=== PATIENT | female | born 1970 | race Two or more races ===

== ENCOUNTER 2022-08-05 00:22 | Inpatient (IN) | payer OTHER ==
[~2022-08-05] VITALS: Ht 165.1 cm; Wt 74.8 kg
--- NOTE | 2022-08-05 00:28 | NUR ---
Dr. Armstrong at bedside. MSE in progress.
[2022-08-05] MEDS ORDERED: ONDANSETRON 4 MG/2 ML VIAL IV ONE (00:45)
[2022-08-05] MEDS ORDERED: IV NORMAL SALINE 1000 ML BAG IV ONE (00:45)
[2022-08-05] MEDS ORDERED: HYDROMORPHONE 1 MG/1 ML DISP.SYRIN IV ONE (00:45)
[2022-08-05] MEDS ORDERED: ONDANSETRON 4 MG/2 ML VIAL ONE (00:52)
[2022-08-05] MEDS ORDERED: HYDROMORPHONE 1 MG/1 ML DISP.SYRIN ONE (00:52)
[2022-08-05 01:31] LABS: HEMATOCRIT 39.4 % (31.2-41.9); PLATELET COUNT (AUTO) 243 K/uL (179-408)
[2022-08-05 01:35] LABS: *BILIRUBIN,URIN NEGATIVE (NEGATIVE); *BLOOD, URINE NEGATIVE (NEGATIVE); *CLARITY,URINE CLEAR (CLEAR); *COLOR,URINE YELLOW (YELLOW); *KETONES,URINE NEGATIVE (NEGATIVE); *UROBILINOGEN,URINE 0.2 E.U./dl (NORMAL); LEUKOCYTE ESTERASE ,URINE NEGATIVE (NEGATIVE); NITRITE, URINE NEGATIVE (NEGATIVE); PH,URINE 8.5 (5.0-8.0); UGLUCOSE NEGATIVE (NEGATIVE)
[2022-08-05 01:42] LABS: ALANINE AMINOTRANSFERASE 13 U/L (14-59); ALKALINE PHOSPHATASE 100 U/L (50-136); ASPARTATE AMINOTRANSFERASE 13 U/L (15-37); BILIRUBIN,DIRECT < 0.1 mg/dL (0.0-0.2); BILIRUBIN,TOTAL 0.5 mg/dL (0.2-1.0); CARBON DIOXIDE 29 mmol/L (21-32); CHLORIDE 105 mmol/L (98-107); CREATININE 0.6 mg/dL (0.6-1.3); GLUCOSE 135 mg/dL (74-106); LIPASE 87 U/L (73-393); POTASSIUM 4.2 mmol/L (3.5-5.1); TOTAL PROTEIN, SERUM 7.3 g/dL (6.4-8.2); UREA NITROGEN, BLOOD 12 mg/dL (7-18)
[2022-08-05] MEDS ORDERED: IV NORMAL SALINE 250 ML IV ONE (02:21)
[2022-08-05] MEDS ORDERED: SWABABLE VALVE TRANSFER SET EA MC ONE (02:21)
[2022-08-05] MEDS ORDERED: IOHEXOL 300MG/ML 100 ML INFUS..BTL ONE (02:21)
--- NOTE | 2022-08-05 02:35 | NUR ---
Patient taken down for CT.
--- NOTE | 2022-08-05 02:49 | NUR ---
Patient back from CT scan.
[2022-08-05] MEDS ORDERED: IV NS 1000 ML 1,000 ML IV ONE (04:45)
[2022-08-05] MEDS ORDERED: METRONIDAZOLE 500 MG/NS 100 ML PIGGYBACK IV ONE (04:45)
[2022-08-05] MEDS ORDERED: METRONIDAZOLE 500 MG/NS 100ML 100 ML IV ONE (04:45)
--- NOTE | 2022-08-05 06:17 | NUR ---
Called [facility] for panal call. scallop raker physician Dr. Lorenzo Ramos.
[2022-08-05] MEDS ORDERED: IV NS 1000 ML 1,000 ML IV PRN (06:30)
[2022-08-05] MEDS ORDERED: ONDANSETRON 4 MG/2 ML VIAL IV PRN (06:30)
[2022-08-05] MEDS ORDERED: REMEDY ESSENTIAL ZINC PASTE 113 GM TP PRN (06:30)
[2022-08-05] MEDS ORDERED: MORPHINE SULFATE 2 MG/1 ML DISP.SYRIN IV PRN (06:30)
[2022-08-05] MEDS ORDERED: CEFTRIAXONE 1 G in IV DEXTROSE 5% 50 ML IV SCH (08:00)
[2022-08-05] MEDS ORDERED: CEFTRIAXONE /D5W 50ML IVPB **ER PYXIS IV ONE (08:40)
[2022-08-05] MEDS ORDERED: PANTOPRAZOLE SODIUM 40 MG VIAL ONE (08:40)
[2022-08-05] MEDS ORDERED: PANTOPRAZOLE SODIUM 40 MG VIAL IV SCH (09:00)
--- NOTE | 2022-08-05 09:33 | NUR ---
Contacted [facility] for transport to and from [facility] for MRCP. ETA 2019
--- NOTE | 2022-08-05 12:05 | NUR ---
[facility] has arrived to unit.
--- NOTE | 2022-08-05 13:45 | NUR ---
Family dropped off phone silo erector.
--- NOTE | 2022-08-05 13:50 | NUR ---
Patient back from [place]. NAD noted. A/O x4. Ambulatory with a steady gait.
[2022-08-05] MEDS ORDERED: METRONIDAZOLE 500 MG/NS 100ML 500 MG in PREMIXED 1 EACH IV SCH (14:00)
--- NOTE | 2022-08-05 17:00 | NUR ---
Patient discharged to home in stable condition with . A/O x4. NAD noted. All belongings with patient. Ambulatory with a steady gait. Written and verbal after care instructions given. Patient verbalizes understanding of instructions. Stressed follow up or return to ER for worsening s/s.
[2022-08-05 17:32] VITALS: BP 130/88
== END 2022-08-05 17:00 | disposition home or self-care (01) ==
LOC: EDBD 00:40 → ER 00:40 → TRANSITION 06:30
PROVIDERS: ADMIT Nurse Practitioner Acute Care; ATTEND Nurse Practitioner Acute Care
DX: K76.89 Other specified diseases of liver (principal); I10 Essential (primary) hypertension; R10.11 Right upper quadrant pain; Z90.49 Acquired absence of other specified parts of digestive tract
CPT/HCPCS: 36415; 71045; 74181; 83690; 85025; 93005; A4663; C9113; G0378; J0696; J1170; J2405; J3490; J7040; Q9967